=== PATIENT | female | born 1945 | race Two or more races ===

== ENCOUNTER 2019-10-07 14:44 | Emergency (ER) | payer OTHER ==
[~2019-10-07] VITALS: Ht 162.6 cm; Wt 68.0 kg
[2019-10-07] MEDS ORDERED: PLAVIX75 MG PO (16:01)
[2019-10-07] MEDS ORDERED: OMEPRAZOLE40 MG PO (16:02)
[2019-10-07] MEDS ORDERED: NEURONTIN800 MG PO (16:02)
== END 2019-10-07 20:23 | disposition home or self-care (01) ==
LOC: ER 14:44
DX: R55 Syncope and collapse (principal); E11.649 Type 2 diabetes mellitus with hypoglycemia without coma